=== PATIENT | male | born 1965 | race Caucasian/White ===

== ENCOUNTER 2020-10-16 12:52 | Inpatient (IN) | payer OTHER ==
[~2020-10-16] VITALS: Ht 177.8 cm; Wt 77.6 kg
--- NOTE | 2020-10-16 13:00 | NUR ---
Patient jessica, from home, noted bruising in the face and shoulder from frequent falling. On room air, breathing evenly and unlabored. Connected to the monitor and pulse ox. Kept comfortable, will continue to monitor accordingly.
--- NOTE | 2020-10-16 14:39 | NUR ---
MOVE SHEET SUBMITTED.
[2020-10-16 14:52] LABS: LYMPHOCYTES # (AUTO) 1.2 K/uL (0.8-4.8); MEAN CORPUSCULAR HGB CONC 33 g/dl (31.0-36.0); MONOCYTES # (AUTO) 0.4 K/uL (0.1-1.30); NEUTROPHILS # (AUTO) 3.1 K/uL (1.8-8.9); WHITE BLOOD COUNT (AUTO) 4.9 K/uL (4.3-11.0)
[2020-10-16] MEDS ORDERED: METO25TA3 PO (14:56)
[2020-10-16 14:58] LABS: BASOPHILS % (AUTO) 0.5 % (0.0-2.0); EOSINOPHILS % (AUTO) 4.1 % (0.0-6.0); HEMATOCRIT 24 % (39-51); HEMOGLOBIN 7.9 g/dL (13.5-17.5); LYMPHOCYTES % (AUTO) 24.3 % (20.0-44.0); MEAN CORPUSCULAR VOLUME 89 fL (80-96); NEUTROPHILS % (AUTO) 63.1 % (43.0-81.0); RED BLOOD CELL COUNT(AUTO) 2.72 MIL/uL (4.5-6.0)
[2020-10-16 15:02] LABS: PLATELET COUNT (AUTO) 41 K/uL (150-450)
[2020-10-16 15:03] LABS: CALCIUM, SERUM 7.5 mg/dL (8.5-10.1); CARBON DIOXIDE 27 mmol/L (21-32); CHLORIDE 110 mmol/L (98-107); CREATININE 0.7 mg/dL (0.6-1.3); GLUCOSE 159 mg/dL (74-106); POTASSIUM 3.5 mmol/L (3.5-5.1); SODIUM SERUM 145 mmol/L (136-145); UREA NITROGEN, BLOOD 7 mg/dL (7-18)
[2020-10-16 15:09] LABS: ALANINE AMINOTRANSFERASE 26 U/L (12-78); ALBUMIN 2.4 g/dL (3.4-5.0); ALKALINE PHOSPHATASE 141 U/L (46-116); ASPARTATE AMINOTRANSFERASE 74 U/L (15-37); BILIRUBIN,DIRECT 2.3 mg/dL (0.0-0.2); BILIRUBIN,TOTAL 3.4 mg/dL (0.2-1.0); LIPASE 319 U/L (73-393); MAGNESIUM 1.7 mg/dL (1.8-2.4); TOTAL PROTEIN, SERUM 6.5 g/dL (6.4-8.2)
[2020-10-16 15:17] LABS: LYMPHOCYTES % (MANUAL) 25 % (16-48); NEUTROPHILS % (MANUAL) 60 (42-76)
[2020-10-16 15:18] LABS: EOSINOPHILS % (MANUAL) 5 % (0-4); MONOCYTES % (MANUAL) 10 % (0-11.0)
[2020-10-16] MEDS ORDERED: Magnesium 1GM/D5W 100ML PREMIX 200 ML IV ONE (15:58)
[2020-10-16] MEDS ORDERED: Magnesium 1 GM/2 ML VIAL IV ONE (16:00)
[2020-10-16] MEDS ORDERED: PANTOPRAZOLE 80 MG in IV NS 0.9% 100 ML IV ONE (16:00)
[2020-10-16] MEDS ORDERED: PANTOPRAZOLE 80 MG in IV NS 0.9% 500 ML IV ONE (16:30)
--- NOTE | 2020-10-16 17:13 | NUR ---
GOT BED 323-2
[2020-10-16] MEDS ORDERED: MAG HYDROX/AL HYDROX/SIMETH 30 ML UDC PO PRN (17:30)
[2020-10-16] MEDS ORDERED: OCTREOTIDE 500 MCG in IV NS 0.9% 99 ML IV PRN (17:30)
[2020-10-16] MEDS ORDERED: MAGNESIUM HYDROXIDE 30 ML UDC PO PRN (17:30)
[2020-10-16] MEDS ORDERED: ONDANSETRON HCL/PF 4 MG/2 ML VIAL IVP PRN (17:30)
[2020-10-16] MEDS ORDERED: Z GUARD REMEDY 2 OZ OINT TP PRN (17:30)
--- NOTE | 2020-10-16 18:28 | NUR ---
RN NOTES PATIENT TRANSFERRED TO UNIT AT ROOM 323-2 VIA [facility], ACCOMPANIED BY 2 ER NURSES.
--- NOTE | 2020-10-16 18:33 | NUR ---
report given to Kinjal JEAN BAPTISTE for nolan
--- NOTE | 2020-10-16 18:34 | NUR ---
wheeled patient via gurney accompanied by Rn and emt in no distress. RN assigned at bedside to assume care.
[2020-10-16] MEDS: MORPHINE SULFATE INJ 2 MG/ML DISP.SYRIN IV PRN (18:48)
[2020-10-16 19:29] LABS: HEMOGLOBIN 7.4 g/dL (13.5-17.5)
--- NOTE | 2020-10-16 19:30 | NUR ---
TRUCK HOP NOTES PATIENT IN BED A/OX4. NO S/S OF APPARENT DISTRESS. NO C/O PAIN. IV PROTONIX RUNNING @52 ML/HR AT THIS TIME. PATIENT NOTED TO HAVE RACCOON EYES. SAFETY IN PLACE: BED IN LOWEST, LOCKED POSITION, CALL LIGHT WITHIN REACH. WILL CONTINUE TO MONITOR. WILL DO ADMISSION SOC.
[2020-10-16 20:00] VITALS: BP 106/81
[2020-10-16] MEDS ORDERED: PANTOPRAZOLE 40 MG VIAL IV SCH (21:00)
[2020-10-16 22:11] VITALS: BP 106/81
--- NOTE | 2020-10-16 22:36 | NUR ---
RIVETER PORTABLE MACHINE NOTES PLT INFUSION BEING DONE AT THIS TIME. V/S PRIOR TO TRANSFUSION FOLLOWS: BP- 106/81; P- 95; RESP 18, TEMP- 97.9, O2 SAT 96%. WILL MONITOR AND CHECK VS Q15X1 ORDERED.
[2020-10-16 22:51] VITALS: BP 144/78
--- NOTE | 2020-10-16 22:56 | NUR ---
SCANNING MANAGER NOTES INFUSION ENDED. V/S FOLLOWS: T- 98; BP- 144/78; P - 90, 02 SAT 94%. NO REACTION AT THIS TIME. WILL CONTINUE TO MONITOR.
--- NOTE | 2020-10-16 23:25 | NUR ---
EVP NOTES CONSENT FOR EGD SIGNED AND WITNESSED.
[2020-10-17] VITALS (7 sets, daily range): BP systolic 132–158; BP diastolic 77–107
--- NOTE | 2020-10-17 00:32 | NUR ---
CONFIDENTIAL INVESTIGATOR NOTES MADE DR. AGUSTINA REYNOSO KNOW ABOUT THE 7.4 HGB AND PROCEDURE OF EGD TOMORROW MORNING. ASKED IF SHE WANTED TO DO BLOOD TRANSFUSION. PER DOCTOR, NO. NO ORDER AT THIS TIME.
[2020-10-17] MEDS: MORPHINE SULFATE INJ 2 MG/ML DISP.SYRIN IV PRN (00:46)
--- NOTE | 2020-10-17 00:51 | NUR ---
RETURN CLERK NOTES PATIENT C/O 8 PAIN. GIVEN MORPHINE PRN 1ML. WILL REASSESS AND CONTINUE TO MONITOR.
[2020-10-17] MEDS ORDERED: ANESTHESIA TRAY IN PYXIS 1 EA TRAY MC ONE (05:25)
--- NOTE | 2020-10-17 05:25 | NUR ---
LEADERSHIP PROGRAM INTERN NOTES PATIENT TAKEN DOWN IN THE OR AT THIS TIME.
[2020-10-17] MEDS ORDERED: MIDAZOLAM HCL 2 MG/2ML VIAL ONE (05:51)
[2020-10-17] MEDS ORDERED: CEFTRIAXONE 1 G VIAL IM SCH (06:00)
[2020-10-17 07:02] LABS: BASOPHILS % (AUTO) 1.1 % (0.0-2.0); EOSINOPHILS % (AUTO) 5.1 % (0.0-6.0); HEMATOCRIT 23 % (39-51); HEMOGLOBIN 7.6 g/dL (13.5-17.5); LYMPHOCYTES # (AUTO) 0.5 K/uL (0.8-4.8); LYMPHOCYTES % (AUTO) 19.9 % (20.0-44.0); MEAN CORPUSCULAR HGB CONC 32 g/dl (31.0-36.0); MEAN CORPUSCULAR VOLUME 90 fL (80-96); MONOCYTES # (AUTO) 0.1 K/uL (0.1-1.30); MONOCYTES % (AUTO) 6.3 % (2.0-12.0); NEUTROPHILS # (AUTO) 1.6 K/uL (1.8-8.9); NEUTROPHILS % (AUTO) 67.6 % (43.0-81.0); RED BLOOD CELL COUNT(AUTO) 2.62 MIL/uL (4.5-6.0); WHITE BLOOD COUNT (AUTO) 2.3 K/uL (4.3-11.0)
--- NOTE | 2020-10-17 07:04 | NUR ---
TIMBER SIZER NOTES NO SIGNIFICANT FINDING IN THE EGD PER OR NURSE. PATIENT STILL IN OR. WILL ENDORSE CARE TO MORNING SHIFT RN.
--- NOTE | 2020-10-17 07:30 | NUR ---
PT RECEIVED RESTING COMFORTABLY IN BED. NO S/S OR C/O PAIN OR DISTRESS NOTED. SIDE RAILS UP X2, ALL LIGHT LEFT WITHIN REACH. WILL CONTINUE PLAN OF CARE.
[2020-10-17 08:03] LABS: PLATELET COUNT (AUTO) 48 K/uL (150-450)
[2020-10-17 08:50] LABS: CALCIUM, SERUM 6.8 mg/dL (8.5-10.1); CREATININE 0.6 mg/dL (0.6-1.3); POTASSIUM 3.7 mmol/L (3.5-5.1)
[2020-10-17] MEDS: CEFTRIAXONE 1 G in IV D5W 50 ML IV SCH (08:52)
[2020-10-17] MEDS: PANTOPRAZOLE 40 MG VIAL IV SCH ×2 (08:52→21:08)
[2020-10-17] MEDS: ACETAMINOPHEN 325 MG TABLET PO PRN (11:00)
[2020-10-17] MEDS ORDERED: METOPROLOL SUCCINATE 25 MG TAB.SR.24H PO SCH (11:00)
[2020-10-17] MEDS: METOPROLOL SUCCINATE 25 MG TAB.SR.24H PO SCH (11:56)
[2020-10-17 14:45] LABS: EOSINOPHILS % (MANUAL) 3 % (0-4); LYMPHOCYTES % (MANUAL) 25 % (16-48); MONOCYTES % (MANUAL) 6 % (0-11.0); NEUTROPHILS % (MANUAL) 66 (42-76)
[2020-10-17] MEDS ORDERED: CLONIDINE HCL 0.1 MG TABLET PO PRN (17:30)
--- NOTE | 2020-10-17 18:51 | NUR ---
CHANGE OF SHIFT REPORT PT RESTING COMFORTABLY IN BED. NO S/S OR C/O PAIN OR DISTRESS NOTED. SIDE RAILS UP X2, CALL LIGHT LEFT WITHIN REACH. PT KEPT CLEAN, DRY, AND COMFORTABLE. NO SIGNIFICANT CHANGES SINCE PREVIOUS SHIFT. WILL GIVE REPORT TO KALEB JEAN BAPTISTE.
--- NOTE | 2020-10-17 19:30 | NUR ---
RN OPENING NOTE PATIENT IS IN BED, AWAKE. PATIENT IS ABLE TO MAKE NEEDS KNOWN, A/O X 3. RAC 20 G PATENT AND INTACT. PATIENT IS CURRENTLY ON RA, TOLERATING AT 96%. PATIENT IS NOTED TO HAVE PERIORBITAL ECCHYMOSIS. COMPLAINING OF LEFT FOOT NUMBNESS. WILL REASSESS AT A LATER TIME. PATIENT IS NOT COMPLAINING OF ANY PAIN. TELE MONITOR READS SR 66 BPM. SAFETY MEASURES IN PLACE: BED IN LOCKED AND IN LOWEST POSITION, CALL LIGHT WITHIN REACH, SIDE RAILS UP. WILL MONITOR PATIENT CLOSELY.
--- NOTE | 2020-10-17 20:05 | NUR ---
RN NOTE PATIENT'S LEFT FOOT NOT NUMB ANYMORE. PATIENT'S PEDAL PULSE STRONG, AND SENSATIONS ARE INTACT. INFORMED PATIENT THAT THIS CAN BE D/T HIM NOT MOVING MUCH. WE PUT SCD/DVT PUMPS ON, AFTER 20 MIN PATIENT SAID IT HELPED. WILL MONITOR PATIENT CLOSELY.
[2020-10-18] VITALS: BP 138/84
[2020-10-18] MEDS: ACETAMINOPHEN 325 MG TABLET PO PRN (03:10)
--- NOTE | 2020-10-18 03:10 | NUR ---
RN NOTE TYLENOL GIVEN FOR 2/10 PAIN ON THE LEG.
[2020-10-18 04:00] VITALS: BP 136/81
--- NOTE | 2020-10-18 06:44 | NUR ---
RN CLOSING NOTE PATIENT IS IN BED, AWAKE. PATIENT COMPLAINS OF PAIN, REFUSES PAIN MEDICATION AT THIS TIME. TELE MONITOR READS SR 66 BPM. PATIENT VERBALIZES HIS NEED FOR PHYSICAL THERAPY. INFORMED PATIENT THAT PT IS ORDERED. IV ACCESS PATENT AND INTACT. BREATHING EVEN AND UNLABORED, ALL ORDERS CARRIED OUT. SAFETY MEASURES IMPLEMENTED. WILL ENDORSE TO DAY SHIFT NURSE FOR BERTRAND.
[2020-10-18 08:00] VITALS: BP 128/66
--- NOTE | 2020-10-18 08:17 | NUR ---
RN OPENING NOTES RECEIVED PATIENT AWAKE IN BED. ALERT AND ORIENTED X 4. NO SIGNS OR SYMPTOMS OF DISTRESS NOTED. TOLERATING WELL ON ROOM AIR. PATIENT IS ABLE TO MAKE NEEDS KNOWN. IV ACCESS RHAND #20 PATENT AND INTACT. EXTERNAL TELE MONITOR READING SINUS RHYTHM 72. PATIENT NOTED TO HAVE PERIORBITAL ECCHYMOSIS. SAFETY MEASURES IN PLACE WITH BED AT LOWEST POSITION AND SIDE RAILS UP X 2. CALL LIGHT IS WITHIN REACH. WILL CONTINUE TO MONITOR THROUGHOUT SHIFT.
[2020-10-18] MEDS: CEFTRIAXONE 1 G in IV D5W 50 ML IV SCH (08:26)
[2020-10-18] MEDS: PANTOPRAZOLE 40 MG VIAL IV SCH (08:26)
[2020-10-18] MEDS: METOPROLOL SUCCINATE 25 MG TAB.SR.24H PO SCH (08:27)
[2020-10-18 08:35] LABS: BASOPHILS % (AUTO) 0.4 % (0.0-2.0); EOSINOPHILS % (AUTO) 3.8 % (0.0-6.0); HEMATOCRIT 28 % (39-51); HEMOGLOBIN 9.2 g/dL (13.5-17.5); LYMPHOCYTES # (AUTO) 0.6 K/uL (0.8-4.8); LYMPHOCYTES % (AUTO) 16.9 % (20.0-44.0); MEAN CORPUSCULAR HGB CONC 33 g/dl (31.0-36.0); MEAN CORPUSCULAR VOLUME 90 fL (80-96); MONOCYTES # (AUTO) 0.3 K/uL (0.1-1.30); MONOCYTES % (AUTO) 6.9 % (2.0-12.0); NEUTROPHILS # (AUTO) 2.6 K/uL (1.8-8.9); PLATELET COUNT (AUTO) 71 K/uL (150-450); RED BLOOD CELL COUNT(AUTO) 3.15 MIL/uL (4.5-6.0); WHITE BLOOD COUNT (AUTO) 3.7 K/uL (4.3-11.0)
[2020-10-18 08:41] LABS: CALCIUM, SERUM 7.7 mg/dL (8.5-10.1); CREATININE 0.7 mg/dL (0.6-1.3); POTASSIUM 3.5 mmol/L (3.5-5.1)
[2020-10-18] MEDS ORDERED: LEVO500T90 PO (09:22)
[2020-10-18 12:00] VITALS: BP 137/73
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
[2020-10-18 16:00] VITALS: BP 142/72
--- NOTE | 2020-10-18 16:20 | NUR ---
SS Note: SW notified by [facility] agency [phone] that the pt. and her have spoken and she found a B&C: [facility] [[address] [facility] [address]; [phone]] where the pt. will be placed in the beginning on next month when pt. receives his SSI. Noted.
[2020-10-18 18:26] LABS: OCCULT BLOOD STOOL NEGATIVE (NEGATIVE)
--- NOTE | 2020-10-18 19:00 | NUR ---
PETROGRAPHY TEACHERWATERWORKS PUMP STATION OPERATOR NOTES RECEIVED DISCHARGE FOR PATIENT. PATIENT IS ALERT AND ORIENTED X 4. NO SIGNS OR SYMPTOMS OF DISTRESS NOTED. ALL BELONGINGS ACCOUNTED FOR AND RETURNED TO PATIENT. TAXI VOUCHER PROVIDED FOR PATIENT HE STATED HE WILL BE GOING TO HIS COUSINS PLACE. IV ACCESS AND EXTERNAL MONITOR REMOVED. PHOTOS TAKEN UPON DISCHARGE. DISCHARGE SUMMARY REVIEWED AND SIGNED BY PATIENT, VERBALIZED UNDERSTANDING.
== END 2020-10-18 19:45 | disposition home or self-care (01) ==
LOC: ER 12:59 → TELE 17:21
PROVIDERS: ADMIT Internal Medicine; ATTEND Internal Medicine
PROC: 30233N1 Transfusion of Nonautologous Red Blood Cells into Peripheral Vein, Percutaneous Approach (ICD-10-PCS; 2020-10-16)
PROC: 0DJ08ZZ Inspection of Upper Intestinal Tract, Via Natural or Artificial Opening Endoscopic (ICD-10-PCS; principal; 2020-10-17)
DX: K76.6 Portal hypertension (principal); E43 Unspecified severe protein-calorie malnutrition; D69.6 Thrombocytopenia, unspecified; E88.09 Other disorders of plasma-protein metabolism, not elsewhere classified; E83.42 Hypomagnesemia; K20.91 Esophagitis, unspecified with bleeding; K70.31 Alcoholic cirrhosis of liver with ascites; I10 Essential (primary) hypertension; K31.89 Other diseases of stomach and duodenum; D64.9 Anemia, unspecified; R10.9 Unspecified abdominal pain; R74.01 Elevation of levels of liver transaminase levels; E80.6 Other disorders of bilirubin metabolism; Z68.24 Body mass index [BMI] 24.0-24.9, adult; Z91.81 History of falling; F10.20 Alcohol dependence, uncomplicated; Z20.822 Contact with and (suspected) exposure to COVID-19
CPT/HCPCS: 36415; 71045-TC; 80048-TC; 80061-TC; 80076-TC; 82272-TC; 83690-TC; 83735-TC; 84484-TC; 85025-TC; 85027-TC; 85730-TC; 86850-TC; 87081-TC; 97116-TC; 97530-TC; C9113; C9803; G0378; J0330; J0696; J2250; J2270; J2354; J2704; J3475; J7030; J7040; J7060; P9034